=== PATIENT | male | born 1940 | race Caucasian/White ===

== ENCOUNTER → 2017-03-21 | Outpatient (CLI) | payer OTHER | LOC: BHFA 13:00 | PROVIDERS: ATTEND Internal Medicine Cardiovascular Disease | DX: I45.9 Conduction disorder, unspecified (principal); I70.90 Unspecified atherosclerosis ==

== ENCOUNTER 2017-08-17 06:46 | Emergency (ER) | payer OTHER ==
[2017-08-17 06:58] VITALS: BP 127/73; PULSE 50; RESP 16; TEMP 97.7; O2SAT 95
--- NOTE | 2017-08-17 07:14 | EDPHY ---
H & P Stated Complaint: c/o itchy rash on penis/testicles x 3 days - Medical/Surgical History Hx Asthma: No Hx Chronic Respiratory Disease: No Hx Diabetes: No Hx Cardiac Disease: Yes Hx Renal Disease: No Hx Cirrhosis: No Hx Alcoholism: No Hx HIV/AIDS: No Hx Splenectomy or Spleen Trauma: No Other PMH: gout, hyperlipidemia, hernia repair, orif R ankle, tonsillectomy - Social History Smoking Status: Former smoker Constitutional: Initial Vital Signs Temperature (C) 36.5 C 08/17/17 06:52 Heart Rate 50 L 08/17/17 06:52 Respiratory Rate 16 08/17/17 06:52 Blood Pressure 127/73 H 08/17/17 06:52 O2 Sat (%) 95 08/17/17 06:52 O2 Delivery Mode Room Air Allergies/Adverse Reactions: clarithromycin Allergy (Verified 08/17/17 06:59) egg [eggs] Allergy (Verified 08/17/17 06:58) Fish Containing Products [fish] Allergy (Verified 08/17/17 06:58) brazil nuts Allergy (Uncoded 08/17/17 06:58) Home Medications: Medication Instructions Recorded Allopurinol 08/17/17 Nystatin/Triamcin [Mycolog II 1 jazzy TP TID #1 cream 08/17/17 Cream] SIMVASTATIN 08/17/17 Medical Decision Making ED Course/Re-evaluation: CHIEF COMPLAINT: Blister, redness on penis and testicles HISTORY OF PRESENT ILLNESS: The patient is a 77 y/o male complaining of a blister and redness on his penis. A few days ago he noticed a blister on his penis with redness around it. The redness was spreading prompting him to visit an urgent care yesterday. At urgent care the blister was lanced and a sample taken to evaluate the cause of the blister. He was given instructions on how to care for the blister with antibiotic ointment. Since then the redness has spread to his testicles and a new blister has formed. He reports the area is itchy. He denies being sexually active. He denies history of sexually transmitted diseases. He denies any other symptoms. REVIEW OF SYSTEMS: A 10 point review of systems was performed and is negative with the exception of the elements mentioned in the history of present illness. PHYSICAL EXAM: HR, BP, O2 Sat, RR. Temp noted General Appearance: Alert, well hydrated, appropriate, and non-toxic appearing. Head: Atraumatic without scalp tenderness or obvious injury Eyes: Pupils equal, round, reactive to light and accommodation, EOMI, no trauma , no injection. Ears: Clear bilaterally, no perforation, normal landmarks Nose: Atraumatic, no rhinorrhea, clear. Throat: There is no erythema or exudates, no lesions, normal tonsils, mucus membranes moist. Neck: Supple, nontender, no lymphadenopathy. Respiratory: No retractions, no distress, no wheezes, and no accessory muscle use. Lungs are clear to auscultation bilaterally. Cardiovascular: Regular rate and rhythm, no murmurs, rubs, or gallops. Good capillary refill all extremities. Gastrointestinal: Abdomen is soft, nontender, non-distended, no masses, no rebound, no guarding, no peritoneal signs. Musculoskeletal: Normal active ROM of all extremities, atraumatic. Neurological: Alert, appropriate, and interactive. Skin: Redness on the penis and white satellite lesions on the ventral aspect of the shaft of the penis, good turgor, no nodules on palpation. Past medical history: Denies Past surgical history: Denies Family history: Non-contributory Social history: DIAGNOSTICS/PROCEDURES/CRITICAL CARE TIME: DIFFERENTIAL DIAGNOSIS: The differential diagnosis included but was not limited to sexually transmitted disease, fungal infection, bacterial infection, and allergic reaction. MEDICAL DECISION MAKING: The patient is a 77 y/o male with a blister and redness on his penis. He had the blister lanced yesterday at urgent care. The redness then spread from his penis to his testicles. He has associated itchiness. On exam the rash is consistent with a fungal infection. Antifungal cream prescribed and patient instructed to follow up with his primary care provider tomorrow. Return precautions given. Departure - Departure Disposition: Home, Routine, Self-Care Clinical Impression: Fungal infection of skin Condition: Good Instructions: Skin Yeast Infection (ED) Additional Instructions: 1. Use mycolog II cream on affected area as directed. Allow the area adequate air flow as healing occurs. 2. Follow up with your primary care provider in 1-2 days. 3. Return to the ED for worsening of condition. Referrals: Rory Burk DO [Primary Care Provider] - As per Instructions Prescriptions: Nystatin/Triamcin [Mycolog II Cream] 1 jazzy TP TID #1 cream Report Scribed for: Anup Ugalde Report Scribed by: Renée Solano Date of Report: 08/17/17 Time of Report: 07:42
== END 2017-08-17 07:51 | disposition home or self-care (01) ==
LOC: MERGE 06:46
DX: B49 Unspecified mycosis (principal); Z87.891 Personal history of nicotine dependence